=== PATIENT | male | born 1950 | race Two or more races ===

== ENCOUNTER 2023-01-25 09:40 | Outpatient (REF) | payer MEDICARE, SELFPAY ==
--- NOTE | ~2023-01-25 | MR_ITS ---
EXAMINATION: MR BRAIN WITHOUT CONTRAST CLINICAL INFORMATION: Headaches and difficulty in concentration. COMPARISON: None. TECHNIQUE: Multiplanar, multisequence imaging of the brain was performed without contrast. FINDINGS: No diffusion abnormalities are identified to suggest an acute infarct. No mass effect or midline shift is seen. Generalized parenchymal volume loss noted with concordant ex vacuo prominence of the ventricles. [id number] chronic white matter microangiopathy noted within both cerebral hemispheres and in the brainstem. No extra-axial fluid collections are seen. The cerebellum is normal. The gradient refocused acquisition demonstrates no pathologic magnetic susceptibility artifact to indicate underlying acute or chronic blood products. Prominent perivascular spaces present in the deep jimenez matter structures. The craniovertebral junction, marrow signal, and midline structures are normal. The major intracranial flow voids at the level of the [place] are preserved. The dural venous sinus flow voids are maintained. The mastoid air cells and paranasal sinuses are well aerated. MR/MR head/brain wo con IMPRESSION: Generalized parenchymal volume loss and [id number] chronic white matter microangiopathy. No acute process.
== END 2023-01-25 09:41 | disposition home or self-care (01) ==
LOC: HO.MRI 09:40
PROVIDERS: PCP Internal Medicine; Visit Provider Psychiatry & Neurology Neurology
DX: G30.9 Alzheimer's disease, unspecified (principal)
CPT/HCPCS: 70551

== ENCOUNTER 2023-02-03 11:19 | Outpatient (REF) | payer MEDICARE, SELFPAY ==
[2023-02-03 12:51] LABS: Erythrocyte Sedimentation Rate 6 MM/HR (0-15)
[2023-02-03 13:06] LABS: Folate 11.7 ng/mL (> or = 4.0); Vitamin B12 857 pg/mL (200-900)
[2023-02-04 08:02] LABS: Syphilis Screen Nonreactive (Nonreactive)
[2023-02-05 05:35] LABS: Lyme Abs Screen <0.90 index
[2023-02-08 16:58] LABS: IgA 182 mg/dL (70-320); IgG 1164 mg/dL (600-1540); IgM 181 mg/dL (50-300)
[2023-02-09 12:13] LABS: Anti Nuclear Antibody Screen POSITIVE (NEGATIVE)
== END 2023-02-03 11:20 | disposition home or self-care (01) ==
LOC: HO.LAB 11:19
PROVIDERS: PCP Internal Medicine; Visit Provider Psychiatry & Neurology Neurology
DX: G30.9 Alzheimer's disease, unspecified (principal); G44.209 Tension-type headache, unspecified, not intractable
CPT/HCPCS: 36415; 82607; 82746; 82784; 85652; 86038; 86039; 86334; 86617; 86618; 86780

== ENCOUNTER 2023-02-17 11:53 | Outpatient (REF) | payer MEDICARE, SELFPAY | END 2023-02-17 11:54 | disposition home or self-care (01) | LOC: HO.LAB 11:53 | PROVIDERS: PCP Internal Medicine; Visit Provider Psychiatry & Neurology Neurology | DX: G30.9 Alzheimer's disease, unspecified (principal) | CPT/HCPCS: 36415; 86225 ==

== ENCOUNTER 2024-11-22 10:05 | Outpatient (REF) | payer MEDICARE, SELFPAY | END 2024-11-22 10:06 | disposition home or self-care (01) | LOC: HO.LAB 10:05 | PROVIDERS: PCP Internal Medicine; Visit Provider Psychiatry & Neurology Neurology | DX: G44.229 Chronic tension-type headache, not intractable (principal); F02.A4 Dementia in other diseases classified elsewhere, mild, with anxiety | CPT/HCPCS: 82233; 82234; 84393; 99212 ==

== ENCOUNTER 2024-11-22 10:05 | Outpatient (AMB) | payer MEDICARE, SELFPAY ==
--- NOTE | 2024-11-22 10:30 | A.OFFVIS_ITS ---
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 MRI of brain in 2022 revealed moderate cerebral atrophy and moderate microvascular ischemic changes. He was symptomatically treated. He was c/o headaches, every day, most of the time. Mood was ok. Speech was ok. Memory was OK. [facility] Medical History (Updated 11/22/24 @ 10:35 by Delroy Jules MD) Glaucoma Tension type headache Alzheimer disease Review of Systems Const Details: Constitutional:?No fever, chills, fatigue, weight loss, or night sweats. HEENT:?No headache, vision changes, hearing loss, nasal congestion, sore throat. Neurological:? Complain of forgetfulness and headaches. Psychiatric:?No anxiety, depression, mood swings, sleep disturbance, or hallucinations. Endocrine:?No heat/cold intolerance, polydipsia, polyuria, or hair/skin changes. Hematologic/Lymphatic:?No easy bruising, bleeding, or lymphadenopathy. Integumentary (Skin):?No rash, lesions, itching, or color changes. ? Physical Exam Neuro Other: Mental Status: Alert and oriented to person, place, and time. Cranial Nerves: CN II: Visual carbajal full to confrontation, visual acuity intact. CN III, IV, : Pupils equal, round, reactive to light and accommodation. Extraocular movements are normal. CN V: Facial sensation is normal. CN VII: Facial movements symmetrical. CN VIII: Hearing intact to bedside conversation is normal. CN IX, X: Palate elevates symmetrically. CN XI: Shoulder shrug and head turn symmetrical. CN XII: Tongue midline without atrophy or fasciculations. Extrapyramidal: Full facial expressions and blinking. No rigidity. Movements are appropriate with no tremor or abnormality. Speech: Normal; no dysarthria or tremor. Assessment & Plan Assessment & Plan (1) Alzheimer dementia: Comment: MRI brain WO at [facility] in Jan 2023: mod atrophy, mod MVD Code(s): G30.9 - Alzheimer's disease, unspecified; F02.80 - Dementia in other diseases classified elsewhere, unspecified severity, without behavioral disturbance, psychotic disturbance, mood disturbance, and anxiety Category: Medical Qualifiers: Alzheimer's disease onset: late onset Dementia severity: mild Dementia behavioral or psychological symptom: with anxiety Qualified Code(s): G30.1 - Alzheimer's disease with late onset; F02.A4 - Dementia in other diseases classified elsewhere, mild, with anxiety (2) Chronic tension type headache: Comment: Meds tried for headaches: Propranalol, sertraline, divalproex acid, topiramate Code(s): G44.229 - Chronic tension-type headache, not intractable Category: Medical Qualifiers: Intractability: not intractable Qualified Code(s): G44.229 - Chronic tension-type headache, not intractable Plan Impression: a: Mild dementia b: Chornic tension type headaches Rec: a: DC topiramate b: Start Verapamil 40mg one at night c: Continue Sertraline d: Serum test for Alzheimer e: Sumatriptan as needed Medications: New sertraline 50 mg PO DAILY 90 tabs 0RF verapamil 40 mg PO BEDTIME 90 tabs 0RF sumatriptan succinate 50 mg orally one a day as needed PRN; do not exceed 4 doses per 24 hrs 10 tabs 2RF migraine headache 30 days Coding Level of Care Code Tele Est Pt Level 4 (22705) Diagnoses Mild late onset Alzheimer's dementia with anxiety G30.1; F02.A4 Alzheimer's disease onset: late onset Dementia severity: mild Dementia behavioral or psychological symptom: with anxiety Chronic tension-type headache, not intractable G44.229 Intractability: not intractable
--- OUTSIDE RECORDS SUMMARY | 2024-11-22 10:44 | XMS_ITS | Clinical Summary ---
Author Organization [facility] Address [address] [place] [address] Phone Care Team Providers Care Director Reactor Projects Name Role Phone Violet Collier Primary Care Provider + Allergies No known active allergies Medications aspirin 81 mg chewable tablet Take 81 mg by mouth daily. 8 Active cholecalciferol (VITAMIN D-3) 25 mcg (1,000 unit) tablet Take 1 capsule by mouth daily. 1 Active divalproex (DEPAKOTE ER) 250 mg 24 hr tablet Take 1 Tablet by mouth daily. Active donepeziL (ARICEPT) 10 mg tablet Take 1 Tablet by mouth at bedtime. 4 Active latanoprost (XALATAN) 0.005 % ophthalmic solution apply 1 Drop to the eye daily. 3 Active oxyBUTYnin XL (DITROPAN-XL) 5 mg 24 hr tablet Take 1 Tablet by mouth daily. 3 Active propranoloL (INDERAL) 20 mg tablet Take 1 Tablet by mouth 2 times daily. 4 Active tamsulosin (FLOMAX) 0.4 mg 24 hr capsule TAKE 1 CAPSULE BY MOUTH DAILY. TAKE 30 MINS AFTER SAME MEAL EVERY DAY. 1 Active timolol (TIMOPTIC) 0.5 % ophthalmic solution apply 1 Drop to the eye daily. 8 Active coenzyme Q-10 100 mg capsule Take 100 mg by mouth daily. 8 Active diclofenac (VOLTAREN) 1 % topical gelIndications:Ole cranon bursitis of right elbow APPLY 2 G TOPICALLY 4 (FOUR) TIMES A DAY IF NEEDED (RIGHT ELBOW). 100 g 1 5 Active atorvastatin (LIPITOR) 40 mg tabletIndications: Mixed hyperlipidemia TAKE 1/2 TABLET BY MOUTH DAILY 45 tablet 3 5 Active Active Problems Problem Noted Date Diagnosed Date BPH (benign prostatic hyperplasia) 03/06/2024 Chronic low back pain 03/06/2024 Overview (03/06/2024): f/u [facility]SS[facility] Dr. 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 Diverticulosis 02/22/2017 GERD (gastroesophageal reflux disease) 6 Chronic constipation 06/21/2014 Carpal tunnel syndrome 06/28/2012 Anxiety and depression Memory disturbance Encounters Date Type Department Care Team Description 11/09/2024 Telephone [facility] [address] [place] [address] Violet Collier PA Referral (Spoke to patient about scheduling a new patient visit with a environmental field professional. Patient stated he will need to talk to Violet Collier and will call back to schedule if he needs to. Danielle R) 08/23/2024 11:15 AM EDT Office Visit Internal Medicine - [place] [address] [place] [address] Violet Collier PA Routine general medical examination at a health care facility (Primary Dx); Pure hypercholesterolemia; Benign prostatic hyperplasia, unspecified whether lower urinary tract symptoms present; Anxiety and depression; Memory disturbance; Vitamin D deficiency; Screening for diabetes mellitus from Last 3 Months Immunizations Name Administration Dates Next Due Influenza Quadravalent, MDCK , 0.5ml, preservative free (Flucelvax) 6mo and older 03/08/2022,03/28/2019,04/11/2018 Influenza trivalent, 0.5mL ( Fluad) 65yo and older 02/22/2017 Pfizer SARS-CoV-2 COVID-19, mRNA, LNP-S, preservative free 04/15/2022,08/27/2020,08/06/2020 Pneumococcal conjugate 13 va lent (Prevnar 13, PCV13) 2mo and older 03/08/2022 Surgical History Surgery Date Site/Laterality Comments APPENDECTOMY PROCEDURE: HISTORICAL APPENDECTOMY OTHER SURGICAL HISTORY 2018 PROCEDURE: [place] ANESTHESIA LUMBAR REGION NOS; COMMENT: lumbar fusion L2-4 Dr. Jarrett Medical History Medical History Date Comments Degenerative joint disease ( DJD) of lumbar spine 02/22/2017 DX:Degenerative joint diseas e (DJD) of lumbar spine; COMMENT: Chronic low back pain. Diverticulosis 02/22/2017 DX:Diverticulosi s Glaucoma 07/27/2017 DX:Glaucoma GERD (gastroesophageal reflux disease) 08/15/2015 DX:GERD (gastroesophageal reflux disease) Hyperlipidemia 10/11/2017 DX:Hyperlipidemi a Spinal stenosis 10/11/2017 DX:Spinal stenos is Carpal tunnel syndrome 06/28/2012 DX:Carpal tunnel syndrome BPH (benign prostatic hyperplasia) DX:BPH (benign prostatic hyperplasia) Chronic low back pain DX:Chronic low back pain; COMMENT: f/u [facility] Dr. Brenner Anxiety and depression Memory disturbance Family History Medical History Relation Name Comments Leukemia Father Hyperlipidemia Mother Hypertension Mother Other: atrial fibrillation Mother Relation Name Status Comments Father (Age 73) Mother (Age 96) Social History Tobacco Use Types Packs/Day Years Used Date Smoking Tobacco: Former Cigarettes 1 14 1 06/11/1977 - 04/11/1992 Smokeless Tobacco: Never Sex and Gender Information Value Date Recorded Sex Assigned at Not on file Legal Sex Male 12:17 AM EST Gender Identity Not on file Sexual Orientation Not on file Obstetrics History Last Filed Vital Signs Vital Sign Reading Time Taken Comments Blood Pressure 134/88 08/23/2024 9:34 AM EDT Pulse 60 08/23/2024 9:34 AM EDT Temperature 36.3 C (97.3 F) 08/23/2024 9:34 AM EDT Respiratory Rate - - Oxygen Saturation 96% 08/23/2024 9:34 AM EDT Inhaled Oxygen Concentration - - Weight 89.8 kg (198 lb) 08/23/2024 9:34 AM EDT Height 170.2 cm (5' 7 ) 08/23/2024 9:34 AM EDT Body Mass Index 31.01 08/23/2024 9:34 AM EDT Plan of Treatment Upcoming Encounters Date Type Department Care Team (Late st Contact Info) Description 02/05/2025 8:20 AM EDT Office Visit [facility] [address] [facility] [address] [place] [phone] Kulwinder Bingham MD [address] [facility] [address] [place] [address] 02/26/2025 11:00 AM EDT Office Visit Internal Medicine - [place] [address] [facility] [address] [address] [place] [phone] Violet Collier PA [address] [facility] [address] [place] [address] Health Maintenance Due Date Last Done Comments DTaP,Tdap,and Td Vaccines (1 - Tdap) 1967 Zoster Vaccines (1 of 2) 1998 Hepatitis C Screening 04/18/2022 Social Influencers of Health Screening 04/18/2022 Pneumococcal Vaccine: 50+ Years (2 of 2 - PPSV23) 03/08/2023 03/08/2022 RSV Immunization Adult Patients (1 - 1-dose 75+ series) 2023 COVID-19 Vaccine (5 - season) 2024 04/15/2022, 03/18/2021, 08/27/2020, Additional history exists Influenza Vaccine (#1) 2025 , 02/13/2020, 03/28/2019, Additional history exists Colorectal Cancer Screening: Colonoscopy 04/05/2025 04/05/2022 Depression Screening 08/23/2025 08/23/2024 Falls Risk Assessment 08/23/2025 08/23/2024 Medicare Annual Wellness Visit 08/23/2025 08/23/2024 Cholesterol Screening (Lipid Panel) 08/23/2029 08/23/2024, 03/02/2024, 03/02/2024 HIB Vaccines Aged Out No longer eligi ble based on patient's age to complete this topic HPV Vaccines Aged Out No longer eligi ble based on patient's age to complete this topic Hepatitis A Vaccines Aged Out No long er eligible based on patient's age to complete this topic Hepatitis B Vaccines Aged Out No long er eligible based on patient's age to complete this topic IPV Vaccines Aged Out No longer eligi ble based on patient's age to complete this topic MMR Vaccines Aged Out No longer eligi ble based on patient's age to complete this topic Meningococcal ACWY Vaccine Aged Out N o longer eligible based on patient's age to complete this topic Meningococcal B Vaccine Aged Out No l onger eligible based on patient's age to complete this topic RSV Immunization Patients Under 20 months Aged Out No longer eligible based on patient's age to complete this topic Varicella Vaccines Aged Out No longer eligible based on patient's age to complete this topic Procedures Procedure Name Priority Date/Time Associated Diagnosis Comments MICROALBUMIN CREATININE URINE RATIO Routine 08/23/2024 10:37 AM EDT Benign prostatic hyperplasia, unspecified whether lower urinary tract symptoms present CBC WITH AUTO DIFFERENTIAL Routine 08/23/2024 10:28 AM EDT Memory disturbance HEMOGLOBIN A1C Routine 08/23/2024 10:28 AM EDT Screening for diabetes mellitus THYROID STIMULATING HORMONE Routine 08/23/2024 10:28 AM EDT Anxiety and depression VITAMIN B12 Routine 08/23/2024 10:28 AM EDT Anxiety and depression VITAMIN D 25 HYDROXY Routine 08/23/2024 10:28 AM EDT Vitamin D deficiency MAGNESIUM Routine 08/23/2024 10:28 AM EDT Anxiety and depression LIPID PANEL WITH REFLEX TO DIRECT LDL Routine 08/23/2024 10:28 AM EDT Pure hypercholesterolemia COMPREHENSIVE METABOLIC PANEL Routine 08/23/2024 10:28 AM EDT Pure hypercholesterolemia CBC AND DIFFERENTIAL Routine 08/23/2024 10:28 AM EDT Memory disturbance HM COLONOSCOPY Routine 04/05/2022 from Last 3 Months or Most Recently Relevant to Health Maintenance Results * Microalbumin creatinine urine ratio (08/23/2024 10:37 AM EDT) Creatinine, Urine 218.0 mg/dL LAB CHEMISTRY METHOD 08/23/2024 12:[address] [facility] Microalb, Ur 13.1 0.0 - 29.0 mg/L LAB CHEMISTRY METHOD 08/23/2024 12:[address] [facility] Microalb/Creat Ratio 6 <30 mg/g creat LAB CHEMISTRY METHOD 08/23/2024 12:[address] [facility] Urine Urine specimen obtained by clean catch procedure / Unknown Non-blood Collection / Unknown 08/23/2024 10:37 AM EDT 08/23/2024 10:51 AM EDT Violet GOODMAN LAB URINE ORDERABLES Fin al Result [facility] [address] [place] [address], * (ABNORMAL) Lipid panel with reflex to direct LDL (08/23/2024 10:28 AM EDT) Cholesterol 219(H) 0 - 200 mg/dL LAB CHEMISTRY METHOD 08/23/2024 11:[address] [facility] Triglycerides 164(H) 0 - 150 mg/dL LAB CHEMISTRY METHOD 08/23/2024 11:[address] [facility] HDL 49 >=40 mg/dL LAB CHEMISTRY METHOD 08/23/2024 11:[address] [facility] LDL Calculated 137(H) 0 - 100 mg/dL LAB CHEMISTRY METHOD 08/23/2024 11:57 AM [facility] VLDL Cholesterol Cedrick 32.8 mg/dL LAB CHEMISTRY METHOD 08/23/2024 11:57 AM [facility] Non HDL Chol. (LDL+VLDL) 170(H) <145 mg/dL LAB CHEMISTRY METHOD 08/23/2024 11:57 AM [facility] Chol/HDL Ratio 4.5(H) 0.0 - 4.4 LAB CHEMISTRY METHOD 08/23/2024 11:57 AM [facility] Blood Venous blood specimen / Unknown Venipuncture / Unknown 08/23/2024 10:28 AM EDT 08/23/2024 10:49 AM EDT Violet GOODMAN LAB BLOOD ORDERABLES Fin al Result [facility] [address] [place] [address], * (ABNORMAL) CBC auto differential (08/23/2024 10:28 AM EDT) WBC 8.8 4.8 - 10.8 K/mcL LAB HEMETOLOGY METHOD 08/23/2024 11:11 AM [facility] RBC 5.00 4.50 - 5.50 M/mcL LAB HEMETOLOGY METHOD 08/23/2024 11:11 AM [facility] Hemoglobin 14.2 13.5 - 17.5 g/dL LAB HEMETOLOGY METHOD 08/23/2024 11:11 AM [facility] Hematocrit 42.7 42.0 - 54.0 % LAB HEMETOLOGY METHOD 08/23/2024 11:11 AM [facility] MCV 85.9 79.0 - 98.0 FL LAB HEMETOLOGY METHOD 08/23/2024 11:11 AM [facility] MCH 28.6 27.0 - 32.0 pcg LAB HEMETOLOGY METHOD 08/23/2024 11:11 AM [facility] MCHC 33.3 32.0 - 37.0 g/dL LAB HEMETOLOGY METHOD 08/23/2024 11:11 AM [facility] RDW 15.6(H) 11.0 - 15.0 % LAB HEMETOLOGY METHOD 08/23/2024 11:11 AM [facility] Platelets 196 130 - 400 K/mcL LAB HEMETOLOGY METHOD 08/23/2024 11:11 AM [facility] MPV 10.1 7.0 - 11.0 FL LAB HEMETOLOGY METHOD 08/23/2024 11:11 AM [facility] NRBC 0.0 <1.0 % LAB HEMETOLOGY METHOD 08/23/2024 11:11 AM [facility] NRBC Absolute 0.00 <0.10 K/mcL LAB HEMETOLOGY METHOD 08/23/2024 11:11 AM [facility] Neutrophils Relative 55.5 % LAB HEMETOLOGY METHOD 08/23/2024 11:11 AM [facility] Lymphocytes Relative 32.4 % LAB HEMETOLOGY METHOD 08/23/2024 11:11 AM [facility] Monocytes Relative 9.6 % LAB HEMETOLOGY METHOD 08/23/2024 11:11 AM [facility] Eosinophils Relative 1.5 % LAB HEMETOLOGY METHOD 08/23/2024 11:11 AM [facility] Basophils Relative 0.8 % LAB HEMETOLOGY METHOD 08/23/2024 11:11 AM [facility] Immature Granulocytes Relative 0.2 % LAB HEMETOLOGY METHOD 08/23/2024 11:[address] [facility] Neutrophils Absolute 4.87 1.50 - 7.00 K/mcL LAB HEMETOLOGY METHOD 08/23/2024 11:[address] [facility] Lymphocytes Absolute 2.84 1.00 - 5.00 K/mcL LAB HEMETOLOGY METHOD 08/23/2024 11:[address] [facility] Monocytes Absolute 0.84 0.20 - 1.00 K/mcL LAB HEMETOLOGY METHOD 08/23/2024 11:[address] [facility] Eosinophils Absolute 0.13 0.00 - 0.50 K/mcL LAB HEMETOLOGY METHOD 08/23/2024 11:[address] [facility] Basophils Absolute 0.07 0.00 - 0.20 K/mcL LAB HEMETOLOGY METHOD 08/23/2024 11:[address] [facility] Immature Granulocytes Absolute 0.02 0.00 - 0.03 K/mcL LAB HEMETOLOGY METHOD 08/23[facility]2024 [facility] Blood Venous blood specimen / Unknown Venipuncture / Unknown 08/23/2024 10:28 AM EDT 08/23/2024 10:46 AM EDT us Violet GOODMAN LAB BLOOD ORDERABLES Fin al Result [facility] [address] [place] [address], * Vitamin D 25 hydroxy (08/23/2024 10:28 AM EDT) [facility] Vit D, 25-Hydroxy 30.2 30.0 - 80.0 ng/mL LAB CHEMISTRY METHOD 08/23/2024 2:[address] [facility] Blood Venous blood specimen / Unknown Venipuncture / Unknown 08/23/2024 10:28 AM EDT 08/23/2024 10:49 AM EDT Violet GOODMAN LAB BLOOD ORDERABLES Fin al Result Performing Organization Address City/[facility]/ZIP Co de Phone Number [facility] [address] [place] [address], * Thyroid stimulating hormone (08/23/2024 10:28 AM EDT) TSH 2.44 0.40 - 4.00 mcIU/mL LAB CHEMISTRY METHOD 08/23/2024 2:[address] [facility] Blood Venous blood specimen / Unknown Venipuncture / Unknown 08/23/2024 10:28 AM EDT 08/23/2024 10:49 AM EDT Violet GOODMAN LAB BLOOD ORDERABLES Fin al Result Performing Organization Address [facility] Co de Phone Number [facility] [address] [place] [address], * Magnesium (08/23/2024 10:28 AM EDT) Magnesium 2.2 1.9 - 2.6 mg/dL LAB CHEMISTRY METHOD 08/23/2024 11:[address] [facility] Blood Venous blood specimen / Unknown Venipuncture / Unknown 08/23/2024 10:28 AM EDT 08/23/2024 10:49 AM EDT Violet GOODMAN LAB BLOOD ORDERABLES Fin al Result Performing Organization Address City/[facility]/ZIP Co de Phone Number [facility] [address] [place] [address], [place] [phone] * Hemoglobin A1c (08/23/2024 10:28 AM EDT) [facility] Hemoglobin A1C 5.4 <6.5 % LAB CHEMISTRY METHOD 08/23/2024 1:[address] [facility] Mean Bld Glu Estim. 108 mg/dL LAB CHEMISTRY METHOD 08/23/2024 1:[address] [facility] Blood Venous blood specimen / Unknown Venipuncture / Unknown 08/23/2024 10:28 AM EDT 08/23/2024 10:46 AM EDT Violet GOODMAN LAB BLOOD ORDERABLES Fin al Result Performing Organization Address [facility]/ZIP Co de Phone Number [facility] [address] [place] [address], [place] [phone] * (ABNORMAL) Vitamin B12 (08/23/2024 10:28 AM EDT) [facility] Vitamin B-12 1,308(H) 250 - 900 pcg/mL LAB CHEMISTRY METHOD 08/23/2024 11:[address] [facility] Blood Venous blood specimen / Unknown Venipuncture / Unknown 08/23/2024 10:28 AM EDT 08/23/2024 10:49 AM EDT Violet GOODMAN LAB BLOOD ORDERABLES Fin al Result [facility] [address] [place] [address], [place] [phone] * Comprehensive metabolic panel (08/23/2024 10:28 AM EDT) [facility] Sodium 140 133 - 145 mmol/L LAB CHEMISTRY METHOD 08/23/2024 11:[address] [facility] Potassium 4.4 3.5 - 5.5 mmol/L LAB CHEMISTRY METHOD 08/23/2024 11:57 AM [facility] Chloride 106 96 - 110 mmol/L LAB CHEMISTRY METHOD 08/23/2024 11:57 AM [facility] CO2 28 21 - 32 mmol/L LAB CHEMISTRY METHOD 08/23/2024 11:57 AM [facility] Anion Gap 6 3 - 11 LAB CHEMISTRY METHOD 08/23/2024 11:57 AM [facility] Glucose 98 70 - 100 mg/dL LAB CHEMISTRY METHOD 08/23/2024 11:57 AM [facility] BUN 13 5 - 25 mg/dL LAB CHEMISTRY METHOD 08/23/2024 11:57 AM [facility] Creatinine 0.94 0.70 - 1.30 mg/dL LAB CHEMISTRY METHOD 08/23/2024 11:57 AM [facility] eGFR 84 >=60 mL/min/1. 73m2 LAB CHEMISTRY METHOD 08/23/2024 11:57 AM [facility] Comment:Calculation based on the Chronic Kidney Disease Epidemiology Collaboration (CKD-EPI) equation refit without adjustment for race. BUN/Creatinine Ratio 13.8 LAB CHEMISTRY METHOD 08/23/2024 11:57 AM [facility] Calcium 9.4 8.5 - 10.5 mg/dL LAB CHEMISTRY METHOD 08/23/2024 11:57 AM [facility] AST (SGOT) 18 10 - 42 unit/L LAB CHEMISTRY METHOD 08/23/2024 11:57 AM [facility] ALT (SGPT) 18 10 - 60 unit/L LAB CHEMISTRY METHOD 08/23/2024 11:57 AM [facility] Alkaline Phosphatase 70 42 - 121 unit/L LAB CHEMISTRY METHOD 08/23/2024 11:57 AM [facility] Total Protein 7.1 6.0 - 8.0 g/dL LAB CHEMISTRY METHOD 08/23/2024 11:[address] [facility] Albumin 3.5 3.2 - 5.0 g/dL LAB CHEMISTRY METHOD 08/23/2024 11:[address] [facility] Total Bilirubin 0.7 0.0 - 1.4 mg/dL LAB CHEMISTRY METHOD 08/23/2024 11:[address] [facility] Blood Venous blood specimen / Unknown Venipuncture / Unknown 08/23/2024 10:28 AM EDT 08/23/2024 10:49 AM EDT Violet GOODMAN LAB BLOOD ORDERABLES Fin al Result [facility] [address] [place] [address], * Colonoscopy (04/05/2022) [facility] Colonoscopy No Interpretation , Abstracted Anatomical Region Laterality Modality Other Historical Provider HEALTH MAINTENANCE Final Result from Last 3 Months or Most Recently Relevant to Health Maintenance Insurance [employer] Care Teams Director Reactor Projects Relationship Specialty Start Date End Date Violet Collier PA [address] [address] PCP - General Internal Medicine 02/11/20
== END 2024-11-22 10:48 | disposition home or self-care (01) ==
LOC: HO.HSM 10:06
PROVIDERS: PCP Internal Medicine; Visit Provider Psychiatry & Neurology Neurology
DX: G30.1 Alzheimer's disease with late onset (principal); F02.A4 Dementia in other diseases classified elsewhere, mild, with anxiety; G44.229 Chronic tension-type headache, not intractable
CPT/HCPCS: 99214

== ENCOUNTER 2025-02-21 10:04 | Outpatient (AMB) | payer MEDICARE, SELFPAY ==
--- NOTE | 2025-02-21 10:11 | A.OFFVIS_ITS ---
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 MRI of brain in 2022 revealed moderate cerebral atrophy and moderate microvascular ischemic changes. He was symptomatically treated. He is presenting with headaches. The episodes of headache are experienced nearly every day, with fluctuations in intensity and frequency. Dizziness accompanies the headaches, particularly in the morning or after drinking coffee at night, prompting the need for the patient to rest and often sleep. He was previously on topiramate, but the medication was ceased. The patient is currently on verapamil but reports persistent headache symptoms. The patient has been evaluated for cognitive decline, with a negative Alzheimer's test, though mild dementia is present. His condition appears stable without rapid deterioration commonly associated with Alzheimer's. He is focused on managing his headache and mitigating cognitive concerns. [facility] Medical History (Updated 02/21/25 @ 10:19 by Delroy Jules MD) Glaucoma Tension type headache Alzheimer disease Review of Systems Const Details: - Neurological: Reports headaches almost daily, dizziness in the mornings and after coffee at night. - Cognitive: Denies significant progression of dementia symptoms, test for Alzheimer's was negative. Physical Exam Neuro Other: Mental Status: Alert and oriented to person, place, and time. Normal attention. Normal spontaneous speech, fluency, and comprehension. No obvious issues with mood and memory. Affect is appropriate. Cranial Nerves: CN II: Visual carbajal full to confrontation, visual acuity intact. CN III, IV, : Pupils equal, round, reactive to light and accommodation. Extraocular movements are normal. CN V: Facial sensation is normal. CN VII: Facial movements symmetrical. CN VIII: Hearing intact to bedside conversation is normal. CN IX, X: Palate elevates symmetrically. CN XI: Shoulder shrug and head turn symmetrical. CN XII: Tongue midline without atrophy or fasciculations. Extrapyramidal: Full facial expressions and blinking. No rigidity. Movements are appropriate w ith no tremor or abnormality. Speech: Normal; no dysarthria or tremor. Assessment & Plan Assessment & Plan (1) Chronic tension type headache: Comment: Meds tried for headaches: Propranalol, sertraline, divalproex acid, topiramate Code(s): G44.229 - Chronic tension-type headache, not intractable Category: Medical Qualifiers: Intractability: not intractable Qualified Code(s): G44.229 - Chronic tension-type headache, not intractable (2) Mild dementia: Comment: Serum abeta amyloid score at [facility] [place] in November 2024: Low MRI brain WO at [facility] in Jan 2023: mod atrophy, mod MVD Code(s): F03.A0 - Unspecified dementia, mild, without behavioral disturbance, psychotic disturbance, mood disturbance, and anxiety Category: Medical Qualifiers: Dementia type: unspecified type Dementia behavioral or psychological symptom: with anxiety Qualified Code(s): F03.A4 - Unspecified dementia, mild, with anxiety Plan Impression: a: Mild dementia b: Chronic tension type headaches Rec: a: Start Verapamil 120mg slow release once a day b: Continue Sertraline 50mg in am c: Serum test for Alzheimer d: Sumatriptan as needed Medications: New verapamil ER 120 mg PO DAILY 90 caps 1RF Discontinued verapamil Discontinued Reason: Doctor's Order 40 mg PO BEDTIME 90 tabs 0RF Coding Level of Care Code Est Pt Level 4 (36665) Diagnoses Chronic tension-type headache, not intractable G44.229 Intractability: not intractable Mild dementia with anxiety, unspecified dementia type F03.A4 Dementia type: unspecified type Dementia behavioral or psychological symptom: with anxiety
== END 2025-02-21 10:22 | disposition home or self-care (01) ==
LOC: HO.HSM 10:04
PROVIDERS: PCP Internal Medicine; Visit Provider Psychiatry & Neurology Neurology
DX: G44.229 Chronic tension-type headache, not intractable (principal); F03.A4 Unspecified dementia, mild, with anxiety
CPT/HCPCS: 99214

== ENCOUNTER → 2025-02-21 10:04 | Outpatient (BNVA) | payer MEDICARE, SELFPAY | PROVIDERS: PCP Internal Medicine; Visit Provider Psychiatry & Neurology Neurology | DX: G44.229 Chronic tension-type headache, not intractable (principal); F03.A4 Unspecified dementia, mild, with anxiety | CPT/HCPCS: 99212 ==